=== PATIENT | female | born 1950 | race Caucasian/White ===

== ENCOUNTER → 2019-04-14 | Day surgery (SDC) | payer MEDICARE ==
[2019-04-05 17:17] LABS: HEMATOCRIT 35.2 % (34.2-44.1); HEMOGLOBIN 11.4 g/dL (12.0-16.0)
[2019-04-05 17:32] LABS: ANION GAP 14.1 mmol/L (8-16); CALCIUM 9.2 mg/dL (8.4-10.2); CREATININE, SERUM 1.2 mg/dL (0.57-1.11)
[2019-04-05 17:36] LABS: POTASSIUM 5.1 mmol/L (3.5-5.1)
[~2019-04-14] MED LIST: ALENDRONATE SOD35 MG PO; ARICEPT5 MG PO; ASPIR-LOW81 MG PO; ASPIRIN81 MG PO; ATROVENT HFA12.9 GM INH; BACLOFEN20 MG PO; BUPIVACAINE HC 0.75% PF 10ML VIAL INJ ONE; BUSPAR PO; CHONDR SU A NA/HYALUR SOD 1 EACH KIT IO ONE; CYCLOPENTOLATE HCL 1% OPTH SOLN 2ML BTL ONE; DEXILANT30 MG PO; DICYCLOMINE HCL10 MG PO; EPINEPHRINE HCL 1:1000 1ML 1 MG/ML AMP ONE; FENTANYL CITRATE/PF 100MCG/2 ML INJ ONE; FLUOXETINE HCL20 MG PO; GATIFLOXACIN(OPTH) 5 ML LIQD ONE; GLIMEPIRIDE2 MG PO; GLIPIZIDE5 MG PO; HYDROCODON-ACE1 EAC7 PO; IMIQUIMOD; IRON PO; JUICE PLUS VITAMINS PO; LEVOCETIRIZINE D5 MG PO; LEVOTHYROXINE112 MCG PO; LIDOCAINE 2% /EPINEPHRINE 20 ML SDV INJ ONE; LIDOCAINE HCL 2% LOCAL INJ 5 ML SDV VIAL INJ ONE; LIDOCAINE HCL-PF 4% 40 MG/1 ML 5ML AMP ONE; LOSARTAN POTASS25 MG PO; MAGNESIUM OXID400 MG PO; MAGNESIUM PO; METFORMIN HCL500 MG PO; METOPROLOL SUCC25 MG PO; MIDAZOLAM HCL 2 MG/2 ML VIAL ONE; NEXIUM40 MG PO; NITROSTAT0.4 MG SL; NORVASC5 MG PO; PHENYLEPHRINE HCL 2 ML DROPS ONE; PILOCARPINE HCL(OPTH) 15 ML LIQD ONE; PLAVIX75 MG PO; POVIDONE IODINE 5% (OPTH) 30 ML BTL ONE; PROAIR HFA INH8.5 GM INH; PROPOFOL IV EMULSION 10 MG/ML 20 ML VIAL ONE; PROZAC20 MG PO; QUETIAPINE FUM100 MG PO; SEROQUEL400 MG PO; SPECTRAVITE SE1 EACH PO; TOBRAMYCIN/DEXAMETHASONE(OPTH) 3.5 GM TUBE ONE; TRIAMCINOLONE TOP; TRICOR48 MG PO; VITAMIN D22000 UNIT PO; ZOLPIDEM TARTRAT5 MG PO; [UNRECOGNIZED DRUG - OTHER]
--- OUTSIDE RECORDS SUMMARY | 2019-04-14 07:52 | XMS REPORT ---
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 Allergies, Adverse Reactions, Alerts This patient has no known allergies or adverse reactions. Medications This patient has no known medications. Encounters Start Date/Time End Date/Time Encounter Type Admission Type Attending [facility] Care Department Encounter ID 2018-08-09 00:00:00 2018-08-09 00:00:00 Outpatient [facility] [id number] 2018-07-27 00:00:00 2018-07-27 00:00:00 Outpatient [facility] [id number] 2018-07-27 00:00:00 2018-07-27 00:00:00 Outpatient [facility] [id number] 2018-06-29 00:00:00 2018-06-29 00:00:00 Outpatient [facility] [id number] 2018-06-22 00:00:00 2018-06-22 00:00:00 Outpatient [facility] [id number] 2018-06-22 00:00:00 2018-06-22 00:00:00 Outpatient [facility] [id number] 2018-05-31 00:00:00 2018-05-31 00:00:00 Outpatient [facility] [id number] 2018-05-24 00:00:00 2018-05-24 00:00:00 Outpatient [facility] [id number] 2018-05-17 10:15:57 2018-05-17 10:15:57 Outpatient [facility] [id number] 2018-05-17 00:00:00 2018-05-17 00:00:00 Outpatient [facility] [id number] 2018-05-10 00:00:00 2018-05-10 00:00:00 Outpatient [facility] [id number] 2018-05-04 00:00:00 2018-05-04 00:00:00 Outpatient [facility] [id number] 2018-04-27 00:00:00 2018-04-27 00:00:00 Outpatient [facility] [id number] 2018-04-21 00:00:00 2018-04-21 00:00:00 Outpatient [facility] [id number] 2018-04-19 00:00:00 2018-04-19 00:00:00 Outpatient [facility] [id number] 2018-03-22 10:31:25 2018-03-22 10:31:25 Outpatient [facility] [id number] 2018-03-15 00:00:00 2018-03-15 00:00:00 Outpatient [facility] [id number] 2018-02-16 12:24:23 2018-02-16 12:24:23 Outpatient [facility] [id number] 2018-02-16 00:00:00 2018-02-16 00:00:00 Outpatient [facility] [id number] 2018-01-20 11:35:32 2018-01-20 11:35:32 Outpatient [facility] [id number] 2018-01-20 09:26:00 2018-01-20 09:26:00 Outpatient [facility] [id number] 2017-12-14 10:17:05 2017-12-14 10:17:05 Outpatient [facility] [id number] 2017-12-08 00:00:00 2017-12-08 00:00:00 Outpatient [facility] [id number] 2017-12-08 00:00:00 2017-12-08 00:00:00 Outpatient [facility] [id number] 2017-09-14 09:57:50 2017-09-14 09:57:50 Outpatient [facility] [id number] 2017-09-14 09:00:05 2017-09-14 09:00:05 Outpatient [facility] [id number] 2017-08-10 10:23:45 2017-08-10 10:23:45 Outpatient [facility] [id number] 2017-08-03 09:51:00 2017-08-03 09:51:00 Outpatient [facility] [id number] 2017-08-03 08:22:40 2017-08-03 08:22:40 Outpatient [facility] [id number] 2017-07-27 11:22:28 2017-07-27 11:22:28 Outpatient [facility] [id number] 2017-07-22 09:50:12 2017-07-22 09:50:12 Outpatient [facility] [id number] 2017-07-09 15:07:17 2017-07-09 15:07:17 Outpatient [facility] [id number] 2017-06-01 00:00:00 2017-06-01 00:00:00 Outpatient [facility] [id number] 2017-05-29 10:35:49 2017-05-29 10:35:49 Outpatient [facility] [id number] 2017-05-29 00:00:00 2017-05-29 00:00:00 Outpatient [facility] [id number] 2017-04-14 09:07:06 2017-04-14 09:07:06 Outpatient [facility] [id number] 2017-03-20 08:07:16 2017-03-20 08:07:16 Outpatient [facility] [id number] 2017-03-03 09:55:44 2017-03-03 09:55:44 Outpatient [facility] [id number] 2017-03-02 09:33:23 2017-03-02 09:33:23 Outpatient [facility] [id number] 2017-02-11 00:00:00 2017-02-11 00:00:00 Outpatient [facility] [id number] 2017-01-28 07:34:09 2017-01-28 07:34:09 Outpatient [facility] [id number] 2017-01-21 09:23:47 2017-01-21 09:23:47 Outpatient [facility] [id number]
[2019-04-14 09:17] LABS: BASOPHILS % 0.5 % (0.0-1.0); EOSINOPHILS # (AUTO) 0.2 (0.0-0.4); HEMATOCRIT 34.7 % (34.2-44.1); HEMOGLOBIN 11.3 g/dL (12.0-16.0); LYMPHOCYTES # (AUTO) 1.4 (1.0-3.2); LYMPHOCYTES % 22.6 % (18.0-39.1); MEAN CORPUSCULAR HEMOGLOBIN 29.7 pg (28-32); MEAN CORPUSCULAR HGB CONC 32.6 g/dL (31-35); MEAN CORPUSCULAR VOLUME 91.3 fL (81-99); MONOCYTES # (AUTO) 0.6 (0.2-0.8); MONOCYTES % 9.5 % (4.4-11.3); NEUTROPHILS # (AUTO) 3.8 (2.1-6.9); NEUTROPHILS % 62.9 % (38.7-80.0); PLATELET COUNT 219 x10e3/uL (140-360)
[2019-04-14 10:40] VITALS: BP 148/71
== END | disposition home or self-care (01) ==
LOC: OR 07:48
PROVIDERS: ATTEND Ophthalmology
DX: H25.11 Age-related nuclear cataract, right eye (principal); E11.9 Type 2 diabetes mellitus without complications; I10 Essential (primary) hypertension; J44.9 Chronic obstructive pulmonary disease, unspecified; G47.33 Obstructive sleep apnea (adult) (pediatric); K21.9 Gastro-esophageal reflux disease without esophagitis; K44.9 Diaphragmatic hernia without obstruction or gangrene; K58.9 Irritable bowel syndrome, unspecified; F31.9 Bipolar disorder, unspecified; F41.9 Anxiety disorder, unspecified; Z72.0 Tobacco use; Z88.8 Allergy status to other drugs, medicaments and biological substances; Z01.810 Encounter for preprocedural cardiovascular examination; Z01.812 Encounter for preprocedural laboratory examination; Z79.02 Long term (current) use of antithrombotics/antiplatelets; Z79.84 Long term (current) use of oral hypoglycemic drugs; Z86.711 Personal history of pulmonary embolism
CPT/HCPCS: 36415 ×2; 66984; 80048; 82948; 85014; 85018; 85025; 93005; J0171; J2001 ×2; J2250; J2704; J3010; V2632

== ENCOUNTER → 2019-05-26 | Day surgery (SDC) | payer MEDICARE ==
[2019-05-25 13:30] LABS: BASOPHILS % 0.6 % (0.0-1.0); EOSINOPHILS # (AUTO) 0.2 (0.0-0.4); EOSINOPHILS % 3.8 % (0.0-6.0); HEMATOCRIT 36.7 % (34.2-44.1); HEMOGLOBIN 11.6 g/dL (12.0-16.0); LYMPHOCYTES # (AUTO) 1.3 (1.0-3.2); LYMPHOCYTES % 24.2 % (18.0-39.1); MEAN CORPUSCULAR HEMOGLOBIN 29.6 pg (28-32); MEAN CORPUSCULAR HGB CONC 31.6 g/dL (31-35); MEAN CORPUSCULAR VOLUME 93.6 fL (81-99); MONOCYTES # (AUTO) 0.5 (0.2-0.8); MONOCYTES % 8.9 % (4.4-11.3); NEUTROPHILS # (AUTO) 3.3 (2.1-6.9); NEUTROPHILS % 62.1 % (38.7-80.0); PLATELET COUNT 254 x10e3/uL (140-360); RED BLOOD COUNT 3.92 x10e6/uL (3.6-5.1); RED CELL DISTRIBUTION WIDTH 12.9 % (11.7-14.4)
[~2019-05-26] MED LIST changes: +COQ-10100 MG PO; -LIDOCAINE HCL 2% LOCAL INJ 5 ML SDV VIAL INJ ONE; +MELATONIN3 MG PO; +biotin PO; +ergocalciferol PO
[2019-05-26 08:35] VITALS: BP 145/64
== END | disposition home or self-care (01) ==
LOC: OR 05:09
PROVIDERS: ATTEND Ophthalmology
DX: H25.12 Age-related nuclear cataract, left eye (principal); Z01.810 Encounter for preprocedural cardiovascular examination; Z01.812 Encounter for preprocedural laboratory examination; E03.9 Hypothyroidism, unspecified; E11.9 Type 2 diabetes mellitus without complications; M54.9 Dorsalgia, unspecified; J44.9 Chronic obstructive pulmonary disease, unspecified; G47.33 Obstructive sleep apnea (adult) (pediatric); I10 Essential (primary) hypertension; I73.9 Peripheral vascular disease, unspecified; E78.5 Hyperlipidemia, unspecified; K21.9 Gastro-esophageal reflux disease without esophagitis; K58.9 Irritable bowel syndrome, unspecified; K44.9 Diaphragmatic hernia without obstruction or gangrene; Z79.82 Long term (current) use of aspirin; Z79.84 Long term (current) use of oral hypoglycemic drugs
CPT/HCPCS: 36415 ×2; 66984; 82948; 85025; 93005; J0171; J2001; J2250; J2704; J3010; V2632

== ENCOUNTER 2020-03-01 16:43 | Emergency (ER) | payer MEDICARE ==
[~2020-03-01] VITALS: Ht 177.8 cm; Wt 77.1 kg
[~2020-03-01 16:43] MED LIST changes: -BUPIVACAINE HC 0.75% PF 10ML VIAL INJ ONE; -CHONDR SU A NA/HYALUR SOD 1 EACH KIT IO ONE; -CYCLOPENTOLATE HCL 1% OPTH SOLN 2ML BTL ONE; -EPINEPHRINE HCL 1:1000 1ML 1 MG/ML AMP ONE; -FENTANYL CITRATE/PF 100MCG/2 ML INJ ONE; -GATIFLOXACIN(OPTH) 5 ML LIQD ONE; -LIDOCAINE 2% /EPINEPHRINE 20 ML SDV INJ ONE; -LIDOCAINE HCL-PF 4% 40 MG/1 ML 5ML AMP ONE; -MIDAZOLAM HCL 2 MG/2 ML VIAL ONE; -PHENYLEPHRINE HCL 2 ML DROPS ONE; -PILOCARPINE HCL(OPTH) 15 ML LIQD ONE; -POVIDONE IODINE 5% (OPTH) 30 ML BTL ONE; -PROPOFOL IV EMULSION 10 MG/ML 20 ML VIAL ONE; -TOBRAMYCIN/DEXAMETHASONE(OPTH) 3.5 GM TUBE ONE
--- NOTE | 2020-03-01 17:16 | Emergency Department Note ---
History of Present Illnes History of Present Illness Chief Complaint: COVID PUI History of Present Illness This is a 69 year old female arrived to the ED with complaints of cough generalized malaise, daughter tested positive for the salazar virus requesting testing in the emergency department today. . Historian: Patient Arrival Mode: Car Onset (how long ago): day(s) Onset quality: sudden Duration (how long): day(s) Timing of current episode: constant Progression: unchanged Chronicity: new Relieving factors: none Past Medical/Family History Physician Review I have reviewed the patient's past medical and family history. Any updates have been documented here. Past Medical History Recent Fever: No Clinical Suspicion of Infectio: Yes New/Unexplained Change in Ment: No Other Medical History: HIGH CHOLESTEROL,PE,BIPOLAR,DEPRESSION,ANXIETY, CORONARY ARTERY SPASM,ANGINA,PVD,CFIDS, PINEAL CYST AND BRAIN LESION, PEPTIC ULCER, IBS, LOW BACK PAIN, SLEEP APNEA, NEUROPATHY, SQUAMOUS CELL CA, CERVICAL SPONDYLOSIS Other Surgery: VENA CAVA LIGATION, RT EAR TUBE, LYSIS OF ADHESIONS, RT KNEE, HEMIVULVECTOMY LEFT LABIA Social History Smoking Cessation: Never Smoker Alcohol Use: Social Physically hurt or threatened: No Other Last Tetanus: UTD Review of Systems Review of Systems Constitutional: Reports as per HPI, Reports malaise, Reports weakness EENTM: Reports no symptoms Cardiovascular: Reports no symptoms Respiratory: Reports as per HPI, Reports cough Gastrointestinal: Reports no symptoms Genitourinary: Reports no symptoms Musculoskeletal: Reports no symptoms Integumentary: Reports no symptoms Neurological: Reports no symptoms Psychological: Reports no symptoms Endocrine: Reports no symptoms Hematological/Lymphatic: Reports no symptoms Physical Exam Related Data Allergies: Coded Allergies: atorvastatin calcium (Verified Allergy, Unknown, 11/26/16) bupropion HCl (Verified Allergy, Unknown, 11/26/16) celecoxib (Verified Allergy, Unknown, 11/26/16) enalapril (Verified Allergy, Unknown, 11/26/16) gabapentin (Verified Allergy, Unknown, 11/26/16) iodine (Verified Allergy, Unknown, 11/26/16) oxcarbazepine (Verified Allergy, Unknown, 11/26/16) shellfish derived (Verified Allergy, Unknown, 11/26/16) simvastatin (Verified Allergy, Unknown, 11/26/16) tramadol (Verified Allergy, Unknown, 11/26/16) trazodone (Verified Allergy, Unknown, 11/26/16) Triage Vital Signs Vital Signs Date Time Temp Pulse Resp B/P (MAP) Pulse Ox O2 Delivery O2 Flow Rate FiO2 03/01/20 16:53 98.5 64 20 135/63 99 Room Air Physical Exam CONSTITUTIONAL Constitutional: Present well-developed, Present well-nourished HENT HENT: Present normocephalic, Present atraumatic, Present oropharynx clear/moist, Present nose normal HENT L/R: Present left ext ear normal, Present right ext ear normal EYES Eyes: Reports PERRL, Reports conjunctivae normal NECK Neck: Present ROM normal PULMONARY Pulmonary: Present effort normal, Present breath sounds normal CARDIOVASCULAR Cardiovascular: Present regular rhythm, Present heart sounds normal, Present capillary refill normal, Present normal rate GASTROINTESTINAL Abdominal: Present soft, Present nontender, Present bowel sounds normal GENITOURINARY Genitourinary: Present exam deferred SKIN Skin: Present warm, Present dry MUSCULOSKELETAL Musculoskeletal: Present ROM normal NEUROLOGICAL Neurological: Present alert, Present oriented x 3, Present no gross motor or sensory deficits PSYCHOLOGICAL Psychological: Present mood/affect normal, Present judgement normal Assessment & Plan Medical Decision Making MDM 55-year-old well-appearing female arrives to the ED with complaints of cough fever loss of taste and smell. Patient is clinically presenting with signs and symptoms consistent with Covid 19. Patient informed she is positive until proven otherwise. Patient's oxygen saturation remained 99% even on exertion, no evidence of tachypnea or dyspnea noted in the ED. Spoke present length about the importance of sleeping on her stomach and rotating from side to side. Z-Ray and Decadron given, signs and symptoms for return discussed. In the light of the Covid pandemic, disaster medicine care was given- patient understands why she was not tested for Covid 19 in the ED, no indications for a chest x-ray at this time given normal oxygen saturation and respiratory status. Patient clinically appears well, outpatient pulmonary follow-up given. The red flags for return to emergency department given. Patient understands the emergency department is open at all times to serve his needs as well as the needs of the community. Assessment & Plan Final Impression: (1) COVID-19 Depart Disposition: HOME, SELF-CARE Last Vital Signs Date Time Temp Pulse Resp B/P (MAP) Pulse Ox O2 Delivery O2 Flow Rate FiO2 7/9/20 16:53 98.5 64 20 135/63 99 Room Air Home Meds Reported Medications [biotin] No Conflict Check, 13630 MCG PO DAILY 05/25/19 Ubidecarenone (COQ-10) 100 Mg Capsule, 100 MG PO DAILY 05/25/19 Melatonin (MELATONIN) 3 Mg Tablet, 5 MG PO HS, TAB 05/25/19 [ergocalciferol] No Conflict Check, 00768 UNITS PO weekly 05/25/19 Dicyclomine Hcl (DICYCLOMINE HCL) 10 Mg Capsule, 10 MG PO QID 04/05/19 Glimepiride (GLIMEPIRIDE) 2 Mg Tablet, 4 MG PO DAILY, TAB 04/05/19 Quetiapine Fumarate (QUETIAPINE FUMARATE) 100 Mg Tablet, 400 MG PO HS, #30 TAB 04/05/19 Fluoxetine Hcl (PROZAC) 20 Mg Capsule, 20 MG PO Q4HR, #30 TAB 04/05/19 Ipratropium [place] (ATROVENT HFA) 12.9 Gm Hfa.aer.ad, 17 MCG INH PRN 04/05/19 Albuterol Sulf* (PROAIR HFA INHALER*) 8.5 Gm Inh, 90 MCG INH PRN 04/05/19 [Iron] No Conflict Check, 325 MG PO DAILY 04/05/19 Donepezil Hcl (ARICEPT) 5 Mg Tablet, 5 MG PO HS, #30 TAB 04/05/19 Nitroglycerin (NITROSTAT) 0.4 Mg Tab.subl, 0.4 MG SL PRN 04/05/19 [Buspar] No Conflict Check, 30 MG PO BID 04/05/19 [Juice Plus Vitamins] No Conflict Check, 1 TAB PO DAILY 04/05/19 Magnesium Oxide (MAGNESIUM OXIDE) 400 Mg Tablet, 250 MG PO DAILY, TAB 06/12/15 Amlodipine Besylate (NORVASC) 5 Mg Tab, 5 MG PO DAILY, #30 TAB 06/12/15 Alendronate Sodium (ALENDRONATE SODIUM) 35 Mg Tablet, 70 MG PO WKLY 06/12/15 Levothyroxine Sodium (LEVOTHYROXINE SODIUM) 112 Mcg Tablet, 112 MG PO DAILY, #30 TAB 06/12/15 Levocetirizine Dihydrochloride (LEVOCETIRIZINE DIHYDROCHLORIDE) 5 Mg Tablet, 5 MG PO BEDTIME 11/22/13 Aspirin (ASPIR-LOW) 81 Mg Tablet.dr, 81 MG PO DAILY 11/22/13 Metoprolol Succinate (METOPROLOL SUCCINATE) 25 Mg Tab.er.24h, 25 MG PO BID 11/22/13 Clopidogrel Bisulfate* (PLAVIX) 75 Mg Tablet, 75 MG PO BEDTIME 11/22/13 Metformin Hcl (METFORMIN HCL) 500 Mg Tablet, 500 MG PO BID 11/22/13 KELLY BAKER, Mar 01, 2020 17:16
== END 2020-03-01 17:01 | disposition home or self-care (01) ==
LOC: ER 16:52
DX: U07.1 COVID-19 (principal); R05 Cough; R53.81 Other malaise; E78.00 Pure hypercholesterolemia, unspecified; G62.9 Polyneuropathy, unspecified; Z85.89 Personal history of malignant neoplasm of other organs and systems
CPT/HCPCS: 99282